=== PATIENT | female | born 1975 | race Two or more races ===

== ENCOUNTER 2023-02-18 21:33 | Emergency (ER) | payer MEDICAID ==
[~2023-02-18] VITALS: Ht 157.5 cm; Wt 99.7 kg
[2023-02-18] MEDS ORDERED: hydrOXYzine 25 MG TAB or CAP PO ONE (23:00)
[2023-02-18] MEDS ORDERED: DexAMETHasone SOD PHOS 10MG/1ML VIAL INJ IM ONE (23:00)
[2023-02-18] MEDS ORDERED: HYDR-3682 PO (23:12)
[2023-02-18] MEDS ORDERED: DIPH25CA66 PO (23:12)
[2023-02-18 23:27] VITALS: BP 108/64
== END 2023-02-19 00:34 | disposition home or self-care (01) ==
LOC: EEVIPCON 21:33 → ER 21:33
DX: F41.9 Anxiety disorder, unspecified (principal); R21 Rash and other nonspecific skin eruption
CPT/HCPCS: 96372; 99283; J1100